=== PATIENT | male | born 1955 | race Caucasian/White ===

== ENCOUNTER 2019-12-20 14:49 | Emergency (ER) | payer MEDICAID ==
[~2019-12-20] VITALS: Ht 177.8 cm; Wt 86.0 kg
[2019-12-20 17:30] VITALS: BP 138/85
== END 2019-12-20 17:57 | disposition home or self-care (01) ==
LOC: ER 14:49
DX: F10.10 Alcohol abuse, uncomplicated (principal); Y90.0 Blood alcohol level of less than 20 mg/100 ml; F15.10 Other stimulant abuse, uncomplicated
CPT/HCPCS: 99283